=== PATIENT | male | born 1965 | race Caucasian/White ===

== ENCOUNTER 2022-04-17 21:47 | Emergency (ER) | payer BC, SELFPAY ==
[2022-04-17 22:04] VITALS: BP 138/99; PULSE 81; RESP 16; TEMP 36.7; O2SAT 94; BMI 29.2
--- NOTE | 2022-04-17 22:12 | CTR_ITS ---
PROCEDURE INFORMATION: Exam: CT Cervical Spine Without Contrast Exam date and time: 04/17/2022 10:30 PM Age: 56 years old Clinical indication: Injury or trauma; Fall; Blunt trauma; Patient HX: Patient thrown off of horse. Doesn't remember the event clearly. C/O headache, neck pain, left chest wall and low back pain. ; Additional info: Fall from horse, loc, neck pain, amnesia TECHNIQUE: Imaging protocol: Computed tomography images of the cervical spine without contrast. Radiation optimization: All CT scans at this facility use at least one of these dose optimization techniques: automated exposure control; mA and/or kV adjustment per patient size (includes targeted exams where dose is matched to clinical indication); or iterative reconstruction. COMPARISON: CT head wo con* [id number] 04/17/2022 10:27 PM RADIATION DOSE METRICS: Total DLP (mGy-cm): 610.96 FINDINGS: Bones/joints: Mild reversal of the cervical lordosis. The vertebral body stature is intact. No fracture or subluxation. Facets are intact with mild degenerative changes. Discs/Spinal canal/Neural foramina: Disc space narrowing with degenerative endplate changes at C4-C5 through C6-C7. Mild right bony foraminal stenosis at C4-C5 and C6-C7. Disc bulge at C4-C5 and C5-C6 with mild central canal stenosis. Lungs: Lung apices are not included. Lymph nodes: Prominent cervical lymph nodes are most likely reactive. Soft tissues: Unremarkable. CT/CT cervical spin wo con* [id number] IMPRESSION: No fracture or acute finding.
--- NOTE | 2022-04-17 22:12 | CTR_ITS ---
PROCEDURE INFORMATION: Exam: CT Head Without Contrast Exam date and time: 04/17/2022 10:27 PM Age: 56 years old Clinical indication: Injury or trauma; Fall; Blunt trauma (contusions or hematomas); Patient HX: Patient thrown off of horse. Doesn't remember the event clearly. C/O headache, neck pain, left chest wall and low back pain. ; Additional info: Fall from horse, loc, headache, amnesia TECHNIQUE: Imaging protocol: Computed tomography of the head without contrast. Radiation optimization: All CT scans at this facility use at least one of these dose optimization techniques: automated exposure control; mA and/or kV adjustment per patient size (includes targeted exams where dose is matched to clinical indication); or iterative reconstruction. COMPARISON: No relevant prior studies available. RADIATION DOSE METRICS: Total DLP (mGy-cm): 916.58 FINDINGS: Brain: Mild cortical volume loss. Minimal hypodensities in supratentorial periventricular and subcortical white matter, consistent with microangiopathy. No intracranial hemorrhage. Cerebral ventricles: No ventriculomegaly. Paranasal sinuses: Visualized sinuses are unremarkable. No fluid levels. Mastoid air cells: Visualized mastoid air cells are well aerated. Bones/joints: Unremarkable. No acute fracture. Soft tissues: Unremarkable. Vasculature: No hyperdense artery. CT/CT head wo con* [id number] IMPRESSION: No acute intracranial abnormality.
--- NOTE | 2022-04-17 22:12 | CTR_ITS ---
PROCEDURE INFORMATION: Exam: CT Chest Without Contrast; Diagnostic Exam date and time: 04/17/2022 10:33 PM Age: 56 years old Clinical indication: Injury or trauma; Fall; Generalized; Blunt trauma (contusions or hematomas); Prior surgery; Surgery type: RT rotator cuff; Patient HX: Patient thrown off of horse. Doesn't remember the event clearly. C/O headache, neck pain, left chest wall and low back pain. ; Additional info: Fall from horse, loc, amnesia, left side and back pain TECHNIQUE: Imaging protocol: Diagnostic computed tomography of the chest without contrast. Radiation optimization: All CT scans at this facility use at least one of these dose optimization techniques: automated exposure control; mA and/or kV adjustment per patient size (includes targeted exams where dose is matched to clinical indication); or iterative reconstruction. COMPARISON: CT cervical spin wo con* [id number] 04/17/2022 10:30 PM RADIATION DOSE METRICS: Total DLP (mGy-cm): 2155.11 FINDINGS: Lungs: Calcified pulmonary nodule/nodules, consistent with prior granulomatous disease. Pleural spaces: Unremarkable. No pneumothorax. No pleural effusion. Heart: No coronary artery calcifications. Lymph nodes: Unremarkable. No enlarged lymph nodes. Vasculature: Unremarkable. No aortic aneurysm. Bones/joints: Unremarkable. No acute fracture. Soft tissues: Unremarkable. PROCEDURE INFORMATION: Exam: CT Abdomen And Pelvis Without Contrast Exam date and time: 04/17/2022 10:33 PM Age: 56 years old Clinical indication: Injury or trauma; Fall; Generalized; Blunt trauma (contusions or hematomas); Prior surgery; Surgery type: RT rotator cuff; Patient HX: Patient thrown off of horse. Doesn't remember the event clearly. C/O headache, neck pain, left chest wall and low back pain. ; Additional info: Fall from horse, loc, amnesia, left side and back pain TECHNIQUE: Imaging protocol: Computed tomography of the abdomen and pelvis without contrast. Radiation optimization: All CT scans at this facility use at least one of these dose optimization techniques: automated exposure control; mA and/or kV adjustment per patient size (includes targeted exams where dose is matched to clinical indication); or iterative reconstruction. COMPARISON: No relevant prior studies available. RADIATION DOSE METRICS: Total DLP (mGy-cm): 2155.11 FINDINGS: Lungs: The lung bases are clear. No effusion Liver: Normal. No mass. Gallbladder and bile ducts: No wall thickening, pericholecystic fluid or stones. Pancreas: Normal. No ductal dilation. Spleen: Normal. No splenomegaly. Adrenal glands: Normal. No mass. Kidneys and ureters: Normal. No hydronephrosis. Stomach and bowel: Diverticulosis without diverticulitis. Appendix: No evidence of appendicitis. Intraperitoneal space: Unremarkable. No free air. No significant fluid collection. Vasculature: Unremarkable. No abdominal aortic aneurysm. Lymph nodes: Unremarkable. No enlarged lymph nodes. Urinary bladder: Unremarkable as visualized. Reproductive: Unremarkable as visualized. Bones/joints: Unremarkable. No acute fracture. Soft tissues: Unremarkable. CT/[place] [id number] IMPRESSION: No evidence of acute injury. IMPRESSION: 1. No evidence of acute injury. 2. Diverticulosis without diverticulitis.
--- NOTE | 2022-04-17 22:14 | ED_ITS ---
HPI - Trauma General: Chief Complaint: Trauma Stated Complaint: Thrown From Horse Time Seen by Provider: 04/17/22 22:14 History of Present Illness: Mr. Butts is a 56-year-old gentleman without significant past medical history who presents to the emergency department due to head injury. He reports being at his baseline health and was riding a horse in a field after taking family out for a ride. He was alone and returned approximately 20 minutes later appearing to be confused. He does not recall events and had some amnesia after returning as well though slowly has been improving. Most likely thrown from horse which was well sized. Currently reporting moderate intensity pain which is generalized including headache and knee pain though he was able to ambulate. Symptoms are worse with movement and palpation of contused areas. No other specific changes in health, exacerbating, or alleviating factors identified. Onset (ago): hour(s) Loss of Consciousness: unsure Severity: moderate Context: fall Associated symptoms: Reports confusion Review of Systems General: Reports: 10 or more systems reviewed and unremarkable except in HPI and below Neuro: Reports: confusion [facility] ED 2 PFSH: Medical History No significant past medical history Surgical History No significant past surgical history Physical Exam Const: COMMON NORMALS: alert GENERAL APPEARANCE: cooperative and well developed HENMT: COMMON NORMALS: normocephalic and atraumatic HEAD & SCALP: normocephalic and atraumatic THROAT: posterior oropharynx normal Eye: COMMON NORMALS: conjunctivae normal CONJUNCTIVA: Yes conjunctivae normal SCLERA: sclerae normal Neck/C-Spine: COMMON NORMALS: supple GENERAL: Yes trachea midline Resp: COMMON NORMALS: normal respiratory effort and clear to auscultation bilaterally EFFORT & INSPECTION: Yes able to speak in complete sentences AUSCULTATION: clear to auscultation bilaterally Cardio: COMMON NORMALS: regular rate and regular rhythm RATE: regular rate RHYTHM: regular rhythm GI: COMMON NORMALS: Soft to palpation PALPATION: Yes Soft to palpation and No Tenderness to palpation present (GI) PERCUSSION: normal to percussion Extremity: NARRATIVE EXTREMITY EXAM: TTP knee, distal CMS intact GENERAL: Yes normal exam except as noted and No edema Neuro: COMMON NORMALS: moves all extremities SENSORIUM/ORIENTATION: Yes alert, No Orientation impaired and Yes other (impaired memory) Skin: NARRATIVE SKIN EXAM: abrasions in various stages of healing Course ED course: - Patient was seen and evaluated by me at bedside - Patient placed on cardiac monitors, IV access obtained - Initial evaluation notable for exam as above. Patient has notable collection of events and appear slightly dazed with no no focal neurodeficit related. - xrays personally interpreted by me - Imaging notable for no acute traumatic injury identified on CT imaging. - Upon serial reexamination after treatment the patient was similar - Based on patient history, evaluation, and testing as interpreted the most likely cause of the patient's condition is fall from horse with closed injury resulting in likely concussion/traumatic brain injury - The results of ED evaluation were discussed with the patient including prescriptions and/or symptomatic cares (if applicable) including appropriate and responsible use, followup plan, and return precautions. The patient verbalized understanding and felt safe for discharge. - Patient discharged in satisfactory condition. Note: Click bubbles or prepopulated lopez in note writing are used for assistance with data collection and billing and are inherently more limited than narrative and other text portions of this note. Please use narrative for additional clini alyse history and defer to narrative/free test for any case of contradictory information. If information appears in only free text or click bubble it should be considered present or absent as reported. Please contact note short story writer for clarifications of clinical information or contradictory information. MDM is a brief summary, contradictory or erroneous seeming information should be clarified and full note should be reviewed. Vital Signs: Vital signs: Vital Signs Temperature 98.1 F 04/17/22 22:04 Pulse Rate 68 04/18/22 00:08 Respiratory Rate 16 04/18/22 00:08 Blood Pressure 111/81 04/18/22 00:08 Pulse Oximetry 97 04/18/22 00:08 MDM - Trauma Medical Decision Making 56-year-old gentleman presenting to the emergency department due to confusion after likely being thrown from horse. CT imaging negative for acute traumatic injury. Declined Tdap. Satisfactory for outpatient management. Medical Records I reviewed the patient's medical records. Lab Data I reviewed the patient's lab results. Radiology Impressions Cervical Spine CT 04/17/22 22:12 IMPRESSION: No fracture or acute finding. Chest/Abdomen/Pelvis CT 04/17/22 22:12 IMPRESSION: No evidence of acute injury. IMPRESSION: 1. No evidence of acute injury. 2. Diverticulosis without diverticulitis. Head CT 04/17/22 22:12 IMPRESSION: No acute intracranial abnormality. Knee X-Ray 04/17/22 22:18 IMPRESSION: No acute findings. Discharge Plan Discharge Patient Disposition: Home Clinical Impression: Animal-rider injured by fall from or being thrown from horse in noncollision accident, initial encounter, Closed head injury Condition: Stable Discharge Orders: Discharge ED (Routine); Ordered 04/17/22 Ordered By: Cleveland Vivar Referrals: Smith Eng MD [Primary Care Provider] - Discharge Diet: Usual diet Discharge Activity: Increase activity as tolerated Patient Instructions: Head Injury (ED), Knee Pain (ED), Shoulder Pain (ED) Activity Restrictions/Additional Instructions: Thank you for visiting the emergency department. You were seen and evaluated for injury of unclear cause likely fall from horse. Given your amnesia event you likely have a concussion (mild traumatic brain injury). No other fracture or internal injury was identified on imaging. Please follow-up with your primary care provider. You may use [id number] medications for symptom treatment however please keep in mind that many namebrand medications contain the same active ingredients. Please return to the emergency department for worsening mental status or anything else that you are concerned about a feel needs emergency department evaluation. Coding Level of Care Code ED Engineering Secretary for Valentín Grover
--- NOTE | 2022-04-17 22:18 | XRR_ITS ---
PROCEDURE INFORMATION: Exam: XR Left Knee Exam date and time: 04/17/2022 10:40 PM Age: 56 years old Clinical indication: Pain; Knee; Left; Additional info: Fall from horse TECHNIQUE: Imaging protocol: XR Left knee. Views: 3 views. COMPARISON: No relevant prior studies available. FINDINGS: Bones/joints: Normal. Soft tissues: Normal. XR/XR knee LT 3V* [id number] IMPRESSION: No acute findings.
[2022-04-17 23:28] VITALS: BP 129/87; PULSE 66; RESP 16; O2SAT 96
[2022-04-18 00:08] VITALS: BP 111/81; PULSE 68; RESP 16; O2SAT 97
== END 2022-04-18 00:09 | disposition home or self-care (01) ==
PROVIDERS: Emergency Provider Emergency Medicine; PCP Family Medicine
DX: S09.90XA Unspecified injury of head, initial encounter (principal); V80.010A Animal-rider injured by fall from or being thrown from horse in noncollision accident, initial encounter; M25.562 Pain in left knee; R51.9 Headache, unspecified; R41.0 Disorientation, unspecified
CPT/HCPCS: 70450; 71250; 72125; 73562; 74176; 99283